=== PATIENT | female | born 1995 | race Caucasian/White ===

== ENCOUNTER 2021-12-13 14:42 | Emergency (ER) | payer OTHER ==
[2021-12-13 16:51] LABS: HEMOGLOBIN 10.3 gm/dl (12.3-15.3); RED BLOOD COUNT 3.64 M/UL (4.00-5.10); WHITE BLOOD COUNT 16.5 K/UL (4.5-11.0)
[2021-12-13 17:47] LABS: BUN/CREATININE RATIO 11 (0-10)
== END 2021-12-13 19:13 | disposition left against medical advice (07) ==
LOC: ER1 14:42
PROVIDERS: Physician Assistant Medical
DX: I11.0 Hypertensive heart disease with heart failure (principal); I50.9 Heart failure, unspecified; J18.9 Pneumonia, unspecified organism; F17.210 Nicotine dependence, cigarettes, uncomplicated; Z20.822 Contact with and (suspected) exposure to COVID-19
CPT/HCPCS: 71045; 80053; 81001; 82550; 82553; 83605; 83880; 84484; 84703; 85025; 87040; 93005; 96374; 96375; 99285; J0696; J1940; U0002